=== PATIENT | male | born 1955 | race Caucasian/White ===

== ENCOUNTER 2018-10-24 09:14 | Outpatient (CLI) | payer OTHER, SELFPAY ==
--- NOTE | 2018-10-24 09:15 | DI.RAD_ITS ---
SYMPTOM/DIAGNOSIS: NEW ONSET DYSPNEA ON EXERTION, R06.09 FRONTAL AND LATERAL CHEST: Comparison is made with 09/23/16. Heart size and pulmonary vasculature are within normal limits. There is some nodularity seen at the lateral left aspect of the cardiac silhouette not present on the prior examination. Pericardial or pulmonary mass cannot be excluded. There is an opacity in the right lung base centrally. This may represent a summation of shadows but an infiltrate or mass cannot be excluded. No effusions or pneumothoraces are identified. No acute osseous abnormality is identified. IMPRESSION: Findings in the lung bases as described above. Further evaluation with a CT scan of the chest is recommended.
[2018-10-24 09:47] LABS: Abs Immature Grans 0.01 k/cumm (0.0-0.09); Absolute Basophil Count 0.03 k/cumm (0.0-0.2); Absolute Eosinophil Count 0.11 k/cumm (0.0-0.7); Absolute Lymphocyte Count 0.91 k/cumm (1.2-3.4); Absolute Monocyte Count 0.42 k/cumm (0.11-0.7); Absolute Neutrophil Count 2.07 k/cumm (1.2-6.7); Basophils % 0.8; Eosinophils % 3.1; HCT 42.8 % (40.0-50.0); HGB 14.5 g/dL (13.5-17.5); Immature Grans % 0.3; Lymphocytes % 25.6; Mean Corp. HGB Concentration 33.9 g/dL (32.0-36.0); Mean Corpuscular Hemoglobin 31.5 pg (27.0-33.0); Mean Corpuscular Volume 92.8 fL (80-95); Mean Platelet Volume 10.8 fL (8.0-11.0); Monocytes % 11.8; Neutrophils % 58.4; Platelet Count 204 x1000/uL (130-400); RBC 4.61 m/cumm (4.50-6.00); RBC Distribution Width 12.6 % (11.8-14.1); White Blood Cell Count 3.55 k/cumm (4.4-10.8)
[2018-10-24 10:30] LABS: ESR 14 MM/HR (1-20)
[2018-10-24 10:58] LABS: ALT 40 U/L (12-78); AST 26 U/L (15-37); Albumin 3.6 g/dL (3.4-5.0); Alkaline Phosphatase 70 U/L (46-116); Anion Gap 5.4 mmol/L (3-11); BUN 11 mg/dL (7-18); Bilirubin, Total 0.4 mg/dL (0.2-1.0); CO2 30.6 mmol/L (21.0-32.0); CREATININE 0.83 mg/dL (0.70-1.30); Calcium 8.5 mg/dL (8.5-10.1); Chloride 105 mmol/L (98-107); Glucose 92 mg/dL (70-100); Potassium 4.2 mmol/L (3.5-5.1); Sodium 141 mmol/L (136-145); Total Protein 6.7 g/dL (6.4-8.2); Vitamin B12 784 pg/mL (193-986)
== END 2018-10-24 09:34 ==
PROVIDERS: PCP Family Medicine; Visit Provider Family Medicine
DX: R06.09 Other forms of dyspnea (principal); R53.83 Other fatigue; J98.4 Other disorders of lung
CPT/HCPCS: 36415; 80053; 85652; 71046; 82607; 84443; 85025

== ENCOUNTER 2018-10-30 01:07 | Outpatient (CLI) | payer OTHER, SELFPAY ==
--- NOTE | 2018-10-30 14:54 | DI.CT_ITS ---
SYMPTOM/DIAGNOSIS: DYSPNEA ON EXERTION, R91.8, ? MASS ON CXR, R91.[address]: CT scan of the chest was performed following the uneventful administration of intravenous contrast material. Comparison chest xray is 10/24/18. The thoracic aorta is of normal caliber. Heart size is within normal limits. No significant pericardial effusion is seen. No thoracic adenopathy, pleural effusion or pneumothorax is identified. There is scarring seen in the right middle lobe and the left lingula which appears to account for the findings on the chest xray. No pulmonary mass is seen. No consolidating infiltrate is present. The tracheobronchial tree is unremarkable. Upper abdominal images show a cyst in the superior pole of the left kidney and a cyst in the left lobe of the liver. Mild degenerative changes are seen in the spine. IMPRESSION: 1. No evidence of a pulmonary mass or thoracic adenopathy. 2. Scarring seen in the right middle lobe and the left lingula which appears to account for the findings on the chest xray.
[2018-10-30] MEDS: Omnipaque 350 MG/ML 100 ML BTL IJ (15:58)
[2018-10-30] MEDS: Normal Saline Flush 10 ML SYR IVP (15:59)
== END 2018-10-30 01:27 ==
PROVIDERS: PCP Family Medicine; Visit Provider Family Medicine
DX: R91.8 Other nonspecific abnormal finding of lung field (principal); R06.09 Other forms of dyspnea; J98.4 Other disorders of lung
CPT/HCPCS: 71260; J3490

== ENCOUNTER 2019-02-02 03:52 | Outpatient (CLI) | payer OTHER, SELFPAY ==
[2019-02-02 10:53] LABS: Calculated LDL 136 mg/dL; Cholesterol 186 mg/dL (50-200); HDL Cholesterol 40 mg/dL (40-60); Triglyceride 53 mg/dL (30-150)
== END 2019-02-02 04:12 ==
PROVIDERS: PCP Family Medicine; Visit Provider Family Medicine
DX: Z13.220 Encounter for screening for lipoid disorders (principal)
CPT/HCPCS: 36415; 80061; 83721

== ENCOUNTER 2019-04-05 13:14 | Day surgery (SDC) | payer OTHER, SELFPAY ==
[2019-04-05 13:42] VITALS: BP 142/96; PULSE 80; RESP 16; TEMP 36.5; O2SAT 98
[2019-04-05 14:08] VITALS: BP 142/96; PULSE 80; RESP 16; TEMP 36.5; O2SAT 98
[2019-04-05] MEDS: Lactated Ringers 1,000 ML 80 ML IV (14:40)
--- NOTE | 2019-04-05 16:07 | W.PM.DSUDISC ---
Discharge Plan Disposition Patient Disposition: HOME Condition: Good Discharge Details Reason For Visit: colonscopy Attending Provider: Belkis Jett Primary Care Provider: Trino Farfan Home Meds and New Rx's Prescriptions: Continued tamsulosin [Flomax] 0.4 mg capsule 0.4 mg PO DAILY Qty: 90 RF: 3 albuterol sulfate [ProAir HFA] 90 mcg/actuation HFA aerosol inhaler 2 puff Inhalation Q4H PRN Qty: 1 RF: 11 multivitamin [Daily Multi-Vitamin] 1 EACH tablet 1 ea PO DAILY RF: 0 omeprazole 20 MG capsule,delayed release(DR/EC) 20 mg PO HS RF: 0 triamcinolone acetonide 15 GM cream 15 gm Topical TID 14 Days Qty: 1 RF: 3 sildenafil [Viagra] 100 mg tablet 50 mg PO DAILY PRN (Reason: sexual activity) Qty: 30 RF: 0 Qvar RediHaler 40 mcg/actuation HFA aerosol breath activated 2 puff IH BID Qty: 10.6 RF: 6 Discontinued bisacodyl [Dulcolax (bisacodyl)] 5 mg tablet,delayed release (DR/EC) 5 mg PO ONCE Qty: 4 RF: 0 polyethylene glycol 3350 17 gram/dose powder 238 g PO ONCE Qty: 238 RF: 0 Discharge Instructions Additional Instructions: Findings: no polyps or divertic Follow up:repeat scope in 10 yrs time Please call if you develop: fevers >101.5 Nausea or Vomiting Abdominal pain that is not transient DAY SURGERY UNIT POST COLONOSCOPY INSTRUCTIONS 1. Because there will be medication in your system for the next 24 hours, you may feel a little sleepy. Your coordination will be affected. Therefore: a. Do not drive or operate dangerous equipment for 24 hours. b. Do not drink alcohol beverages for 24 hours (not even beer). c. Plan to go home and rest for the day. 2. Generally there are no restrictions on your activity after a day or so has gone by, but you may feel a bit fatigued for a few days. 3 After you arrive home you may have a light meal and return to a normal diet as you can tolerate it without feeling sick to your stomach. 4. After surgery, you may feel pain or discomfort. This should be only transient, but if it persists please contact your doctor. 5. If there are any questions regarding the findings of your procedure, please feel free to contact your doctor. 6. If you are unable to contact your doctor with a problem, contact the hospital at [phone]. 7. Continue all your regular medications unless directed otherwise. I understand the above instructions and have no questions. Signature of Patient or Responsible Adult Escort Date/Time Name of Responsible Adult Escort Signature of Nurse Date/Time Activity:: No heavy lifting or strenuous activity x24 hours Diet:: Small light meals x24 hours Discharge Orders Discharge Orders: Discharge Order (Routine); Ordered 04/05/19 Ordered By: Belkis Jett DS: Diagnosis Discharge Diagnosis (1) External hemorrhoids without complication: Status: Acute
--- NOTE | 2019-04-05 16:12 | W.COLOREPORT ---
Date of service: 04/05/19 Time of Service: 16:12 Colonoscopy Report Date of procedure: 04/05/19 Pre-op diagnosis general: Screening Post-op diagnosis procedure note: other (minor ext hem) Procedure: Colonoscopy Surgeon: Belkis Jett Anesthesia proc note operative: GETA Estimated blood loss (mL): 0 Pathology: none sent Complications: None Disposition: same day Prep: Miralax/Dulcolax Retraction Time: 10 mins Procedure Description: After informed consent was obtained the patient was taken to the procedure room and placed in a left decubitous position. Monitors were applied and a time out was done. The patients name, date of , procedure, allergies to medications and metal in their body was reviewed. The patient was then sedated. Once sedated and comfortable a rectal exam was done. External exam was normal. Internal exam revealed a normal sphincter tone and no palpable masses- small ext hem.. The prostate nl. The scope was then introduced and retrofelexed. The scope was then advanced to the cecum without difficulty. The TI and appendiceal orifice were identified. The prep was good. The scope was then slowly retracted over 10 minutes back into the rectum. Polyps were removed at no. There were no polyps, AVMs, diverticuli apparent. The mucosa appeared pink healthy and normal. The scope was removed and the patient was woken up and taken back to Same day surgery in stable condition. The patient tolerated the procedure well and there were no immediate complications. Follow up: The patient should follow up in 10 years unless they develop changes in bowel habits or other new gastrointestinal complaints.
[2019-04-05 16:45] VITALS: BP 131/72; PULSE 63; RESP 16; TEMP 37; O2SAT 99
== END 2019-04-05 17:06 | disposition home or self-care (01) ==
PROVIDERS: PCP Family Medicine; Visit Provider Surgery
PROC: 0DJD8ZZ Inspection of Lower Intestinal Tract, Via Natural or Artificial Opening Endoscopic (ICD-10-PCS; CPT 45378; principal; 2019-04-05 14:45)
DX: Z12.11 Encounter for screening for malignant neoplasm of colon (principal); K64.4 Residual hemorrhoidal skin tags; K21.9 Gastro-esophageal reflux disease without esophagitis
CPT/HCPCS: 45378

== ENCOUNTER 2020-02-11 02:30 | Outpatient (CLI) | payer OTHER, SELFPAY ==
[2020-02-11 10:36] LABS: Anion Gap 10.2 mmol/L (3-11); BUN 15 mg/dL (7-18); CO2 26.8 mmol/L (21.0-32.0); Calcium 9.1 mg/dL (8.5-10.1); Calculated LDL 154 mg/dL (<100); Chloride 104 mmol/L (98-107); Cholesterol 210 mg/dL (<200); Glucose 82 mg/dL (74-106); HDL Cholesterol 45 mg/dL (40-60); Potassium 4.1 mmol/L (3.5-5.1); Sodium 141 mmol/L (136-145); Triglyceride 56 mg/dL (<150)
== END 2020-02-11 02:50 ==
PROVIDERS: PCP Family Medicine; Visit Provider Family Medicine
DX: Z13.1 Encounter for screening for diabetes mellitus (principal); Z13.220 Encounter for screening for lipoid disorders
CPT/HCPCS: 36415; 80048; 80061

== ENCOUNTER 2020-08-06 20:50 | Outpatient (REF) | payer OTHER, SELFPAY ==
[2020-08-07 14:38] LABS: COVID-19 RT-PCR UVMMC Result Negative (Negative)
== END 2020-08-06 20:51 | disposition home or self-care (01) ==
LOC: LBN 20:50
PROVIDERS: PCP Family Medicine; Visit Provider Family Medicine
DX: R06.02 Shortness of breath (principal)
CPT/HCPCS: U0003

== ENCOUNTER 2020-09-05 17:29 | Outpatient (CLI) | payer OTHER, SELFPAY ==
--- NOTE | 2020-09-05 17:15 | RT.EKG_ITS ---
APPROVED REPORT Exam: Resting ECG Patient Location: O HR:60 bpm ECG Measurements Heart Rate 60 AXIS IA 151 P 56 QRSd 110 QRS 23 QT 437 T 30 QTc 436 Conclusion Sinus rhythm...normal P axis, V-rate 60- 99
--- NOTE | 2020-09-05 17:30 | RT.EKG_ITS ---
APPROVED REPORT Exam: Resting ECG Patient Location: O HR:60 bpm ECG Measurements Heart Rate 60 AXIS [place] 156 P 66 QRSd 105 QRS 26 QT 425 T 31 QTc 425 Conclusion Sinus rhythm...normal P axis, V-rate 60- 99
--- NOTE | 2020-09-05 19:30 | DI.RAD_ITS ---
EXAM: XR CHEST 2V PA LATERAL CLINICAL HISTORY: SOB w/ exertion TECHNIQUE: COMPARISON: CR XR CHEST 2V PA LATERAL from 10/24/2018 FINDINGS: PA and lateral chest is compared with prior radiographs of October 24 [address] of October 302018. Note is again made of areas of bibasilar scarring. Lungs otherwise appear clear. Cardiac size within normal limits. No pleural effusion seen. IMPRESSION: No evidence of acute process. RADIATION DOSE DELIVERED: Total DLP
--- NOTE | 2020-09-05 19:36 | DI.VRAD_ITS ---
PROCEDURE INFORMATION: Exam: XR Chest Exam date and time: 09/05/2020 6:48 PM Age: 65 years old Clinical indication: Other: SOB w/exertion TECHNIQUE: Imaging protocol: XR of the chest Views: 2 views. COMPARISON: CT CHEST W 10/30/2018 3:34 PM FINDINGS: Lungs: Unremarkable. No consolidation. Pleural spaces: Unremarkable. No pleural effusion. No pneumothorax. Heart/Mediastinum: Unremarkable. No cardiomegaly. Bones/joints: Unremarkable. IMPRESSION: No acute findings. Dictated and Authenticated by: Ugo Cota MD. Ordering:HILDA Barrientos MD
== END 2020-09-05 17:30 | disposition home or self-care (01) ==
PROVIDERS: PCP Family Medicine; Visit Provider Physician Assistant
DX: R42 Dizziness and giddiness (principal); R06.02 Shortness of breath
CPT/HCPCS: 71046

== ENCOUNTER 2020-09-05 22:18 | Outpatient (REF) | payer OTHER, SELFPAY ==
[2020-09-05 20:35] LABS: Abs Immature Grans 0.03 10^3/uL (0.0-0.06); Absolute Basophil Count 0.02 10^3/uL (0.0-0.2); Absolute Eosinophil Count 0.35 10^3/uL (0.0-0.7); Absolute Lymphocyte Count 1.61 10^3/uL (1.2-3.4); Absolute Monocyte Count 0.86 10^3/uL (0.1-0.8); Absolute Neutrophil Count 5.23 10^3/uL (1.2-6.7); Basophils % 0.2; Eosinophils % 4.3; HCT 43.5 % (40.0-50.0); HGB 14.6 g/dL (13.5-17.5); Immature Grans % 0.4; Lymphocytes % 19.9; MCH 31.3 pg (27.0-33.0); MCHC 33.6 % (32.0-36.0); MCV 93.3 fL (80-95); MPV 11.6 fL (8.0-11.0); Monocytes % 10.6; Neutrophils % 64.6; Nucleated RBC 0 %; Platelet Count 239 10^3/uL (130-400); RBC 4.66 10^6/uL (4.36-5.78); RDW 11.9 % (11.8-14.1); RDW-SD 40.7 fL
[2020-09-05 20:44] LABS: ALT 48 U/L (16-63); AST 23 U/L (15-37); Albumin 3.7 g/dL (3.4-5.0); Alkaline Phosphatase 89 U/L (46-116); Anion Gap 7.7 mmol/L (3-11); BUN 14 mg/dL (7-18); Bilirubin, Total 0.5 mg/dL (0.2-1.0); CO2 28.3 mmol/L (21.0-32.0); CREATININE 0.9 mg/dL (0.70-1.30); Calcium 8.6 mg/dL (8.5-10.1); Chloride 104 mmol/L (98-107); Glucose 89 mg/dL (74-106); Potassium 5.2 mmol/L (3.5-5.1); Sodium 140 mmol/L (136-145); Total Protein 6.9 g/dL (6.4-8.2)
[2020-09-05 21:38] LABS: D-Dimer 335 ng/mlFEU (<500)
== END 2020-09-05 22:19 | disposition home or self-care (01) ==
LOC: NCHCN 22:18
PROVIDERS: PCP Family Medicine; Visit Provider Physician Assistant
DX: R06.02 Shortness of breath (principal)
CPT/HCPCS: 80053; 85025; 85379

== ENCOUNTER 2020-09-10 02:16 | Outpatient (CLI) | payer OTHER, SELFPAY ==
[2020-09-10 09:15] LABS: Potassium 4.5 mmol/L (3.5-5.1)
== END 2020-09-10 02:17 | disposition home or self-care (01) ==
LOC: LBO 02:16
PROVIDERS: PCP Family Medicine; Visit Provider Physician Assistant
DX: E87.5 Hyperkalemia (principal)
CPT/HCPCS: 84132

== ENCOUNTER 2020-09-16 01:26 | Outpatient (CLI) | payer OTHER, SELFPAY ==
--- NOTE | 2020-09-16 09:00 | ETT_ITS ---
APPROVED REPORT Exam: Exercise Treadmill Patient Location: Out-Patient Room/Bed: Stress Nurse: Roslyn Warren RN Ordering Provider:KIMBERLEE MAHONEY, Contact Number: [phone] BMI: 28.36 Baseline Rhythm: Sinus Rhythm Indications: Intermittent lightheadedness, SOB on exertion Medical History Medical History: Hyperlipidemia, asthma, adjustment disorder of depressed mood, intermittent hyperten damion Cardiac Medications: atorvastatin, aspirin, qvar, albuterol sulfate Allergies: cyclobenzaprine Cardiac Risk Factors: Hyperlipidemia, asthma, intermittent hypertension, family hx Previous Cardiac Procedures: None Pretest Chest Pain Characteristics: None Exercise History: Sedentary Physical Disabilities: None Lung Sounds: Clear to auscultation Heart Sounds: Regular Stress Test Details Test: Exercise stress testing was performed using a Phil protocol. Rest Stress HR Resting HR Supine: 61 bpm Max Heart Rate (APMHR): 156 bpm Resting HR Standin bpm Target HR (85% APMHR): 132 bpm Max HR Achieved: 152 bpm % of APMHR: 97 Recovery HR: 71 bpm HR response to stress: Normal HR response to stress BP Resting BP Supine: 144/86 mmHg Resting BP Standin/84 mmHg Max BP: 170/98 mmHg Recovery BP: 132/82 mmHg BP response to stress: Normal blood pressure response to stress. ECG Resting ECG: Sinus Rhythm Ectopy: None Stress ECG: Sinus Tachycardia ST Change: No significant ST segment changes noted Arrhythmia: Couplet, occasional PVC Recovery ECG: Sinus Rhythm Recovery ST Change: No significant ST segment changes noted Recovery Arrhythmia: PAC, frequent PVCs Clinical Reason for Termination: Dyspnea Stress Symptoms: Dyspnea Exercise duration: 9 min26 sec Highest Stage Reached: Stage 4: 4.2 mph at 16% grade. Exercise capacity: 10.86 METs Philip Treadmill Score: 9 Rate Pressure Product: 12068 Stress ECG Conclusion 1. The patient exercised for 9 minutes (11 METS). Exercise was stopped due to dyspnea. 2. The patient augmented blood pressure and heart rate appropriately. 3. There were no symptoms suggestive of ischemia. 4. There were no ECG changes suggestive of ischemia. Philip Treadmill Score is 9 which is Low risk. Stress Test Summary STAGE Time (mins) Speed (mph) Grade (%) HR BP SYMPTOMS METS Supine 61 144/86 Standing 71 150/84 1 3 1.7 10 112 144/88 4.6 2 6 2.5 12 128 160/98 7 3 9 3.4 14 146 170/98 10.2 1 min recovery 111 170/96 3 min recovery 79 170/82 6 min recovery 71 132/82
== END 2020-09-16 01:46 ==
LOC: DI 01:27
PROVIDERS: PCP Family Medicine; Visit Provider Physician Assistant
DX: R06.02 Shortness of breath (principal); R42 Dizziness and giddiness; E78.5 Hyperlipidemia, unspecified; J45.909 Unspecified asthma, uncomplicated; I10 Essential (primary) hypertension; Z82.49 Family history of ischemic heart disease and other diseases of the circulatory system
CPT/HCPCS: 93017

== ENCOUNTER 2021-02-12 03:04 | Outpatient (CLI) | payer OTHER, SELFPAY ==
[2021-02-12 13:10] LABS: ALT 41 U/L (16-63); AST 25 U/L (15-37); Albumin 3.9 g/dL (3.4-5.0); Alkaline Phosphatase 70 U/L (46-116); Anion Gap 11.5 mmol/L (3-11); BUN 16 mg/dL (7-18); Bilirubin, Total 0.8 mg/dL (0.2-1.0); CO2 24.5 mmol/L (21.0-32.0); CREATININE 0.9 mg/dL (0.70-1.30); Calcium 8.7 mg/dL (8.5-10.1); Calculated LDL 70 mg/dL (<100); Chloride 106 mmol/L (98-107); Cholesterol 126 mg/dL (<200); Glucose 84 mg/dL (74-106); HDL Cholesterol 47 mg/dL (40-60); Sodium 142 mmol/L (136-145); Total Protein 6.6 g/dL (6.4-8.2); Triglyceride 49 mg/dL (<150)
== END 2021-02-12 03:05 | disposition home or self-care (01) ==
LOC: LBO 03:04
PROVIDERS: PCP Family Medicine; Visit Provider Family Medicine
DX: E78.5 Hyperlipidemia, unspecified (principal)
CPT/HCPCS: 36415; 80053; 80061

== ENCOUNTER 2021-04-06 16:58 | Emergency (ER) | payer OTHER, SELFPAY ==
--- NOTE | 2021-04-06 17:00 | DI.RAD_ITS ---
Exam(s) XR HAND RT COMPLETE EXAM: XR HAND RT COMPLETE CLINICAL HISTORY: crush injury Tuesday. TECHNIQUE: 2D digital imaging was performed. COMPARISON: No exams were available for comparison FINDINGS: There is a small ossified density seen off the distal dorsal aspect of the middle phalanx of the 3rd- middle finger. This may be an avulsion fracture at this level and correlation with site of tendernes s is recommended. Small less than 1 millimeter ossified density is also noted off the DIP joint of t he 2nd-index finger. This does not have the appearance of a typical avulsion fracture. IMPRESSION: Possible avulsion fracture distal aspect of the middle phalanx 3rd finger. Correlation with site of tenderness is recommended. DATA REPOSITORY: RADIATION DOSE DELIVERED:
[2021-04-06 17:04] VITALS: BP 144/91; PULSE 84; RESP 18; TEMP 37.3; O2SAT 99
--- NOTE | 2021-04-06 17:13 | W.ED.GENAD ---
Discharge Plan Disposition Patient Disposition: HOME Condition: Good Discharge Details Clinical Impression: Crush injury of hand Primary Care Provider: Trino Farfan ED Provider: Rhonda Cochran Home Meds and New Rx's Prescriptions: Continued tamsulosin [Flomax] 0.4 mg capsule 0.4 mg PO DAILY Qty: 90 RF: 3 atorvastatin 40 mg tablet 40 mg PO QHS Qty: 90 RF: 3 albuterol sulfate [ProAir HFA] 90 mcg/actuation HFA aerosol inhaler 2 puff Inhalation Q4H PRN Qty: 1 RF: 11 sildenafil [Viagra] 100 mg tablet 50 mg PO DAILY PRN (Reason: sexual activity) Qty: 30 RF: 11 losartan 50 mg tablet 50 mg PO DAILY Qty: 90 RF: 3 multivitamin [Daily Multi-Vitamin] 1 EACH tablet 1 ea PO DAILY RF: 0 omeprazole 20 MG capsule,delayed release(DR/EC) 20 mg PO HS RF: 0 Qvar RediHaler 40 mcg/actuation HFA aerosol breath activated 2 inh IH BID Qty: 10.6 RF: 6 Discharge Instructions Instructions: Crush Injury (ED) Additional Instructions: X-ray is reassuring. As we discussed, there was a small questionable area at the end of your middle finger but this does not seem to correlate with your injury. Likely old. However, crush injury can be incredibly uncomfortable as well as result enlargement swelling. Please use the Elías wrap to help with swelling and discomfort. Please encourage rest, ice, elevation. Tylenol and/or ibuprofen as needed for comfort. Please follow-up with primary care for reevaluation in 2 weeks. If you develop any new or worsening symptoms please seek care urgently once again. Referrals: Trino Farfan DO [Primary Care Provider] - Discharge Data Discharge Date/Time-TO BE ENTERED AT DEPARTURE: 04/06/21 18:54 Medical Decision Making Patient is a pleasant 66-year-old gentleman presenting today with complaint of right hand injury. 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 Since then, he has been having pain and swelling of the dorsal aspect of his right hand, primarily clustered around the second and third MCP joints. He denies any injuries from the incident. Denies any numbness or tingling. No opening in the skin. Patient does have history of Dupuytren's. On exam, patient appears nontoxic. Has notable swelling on the dorsal aspect of his hand all proximal to the MCP joint. This is area of discomfort. No palpable deformity. Dupuytren's deformity noted at the fifth digit. Is ligamentously intact. No swelling or deformity in the fingers. 2+ distal pulses. Forage motion of the wrist. X-ray obtained here evaluate for any bony abnormality. FINDINGS: Bones/joints: Tiny osseous fragment dorsal to the distal interphalangeal joint of the 3rd digit, suspicious for avulsion fracture of the epiphysis of the middle phalanx. No other osseous injury identified. No significant degenerative changes. Soft tissues: Normal. IMPRESSION: Tiny osseous fragment dorsal to the distal interphalangeal joint of the 3rd digit, suspicious for avulsion fracture of the epiphysis of the middle phalanx. Reevaluated the patient. This does not fit clinically. I did discuss this with the patient and feel this is likely old and not associated with his acute injury. Advised that he has crush injury with associated swelling. Encourage rest, ice and elevation. Tylenol and/or ibuprofen as needed for discomfort. I encourage the use of an Elías wrap to help swelling. Advise follow-up with primary care in 2 weeks for reevaluation. All his questions and concerns were addressed and he is agreement this plan. He will return with any new or worsening symptoms. HPI General Mode of arrival: ambulatory. Date/Time Provider Initiated Documentation: 04/06/21 17:09. Limitations to Documentation: no limitations. Information obtained by: patient and RN notes reviewed. History of Present Illness 66 year old M presents to the emergency department with the chief complaint of right hand pain, described as moderate, with intensity rated at 7. Quality is described as aching, and is localized to the right and upper extremity. Patient reports no radiation. Patient started experiencing this day(s) and it has been constant. Immobilization improves symptom(s), Movement worsens symptoms . Patient notes no other symptoms.. Patient did receive the following treatments prior to arrival, none Related Data Home Medications Medication Instructions Recorded Confirmed multivitamin [Daily Multi-Vitamin] 1 ea PO DAILY 09/28/12 04/06/21 omeprazole 20 mg PO HS cap 05/09/17 10/11/21 losartan 50 mg tablet 50 mg PO DAILY #90 tab 10/24/20 04/06/21 beclomethasone dipropionate 40 2 inh IH BID #10.6 gm 12/23/20 04/06/21 mcg/actuation HFA breath activated aerosol albuterol sulfate 90 mcg/actuation 2 puff INHALATION Q4H PRN #1 puff 02/19/21 04/06/21 aerosol inhaler atorvastatin 40 mg tablet 40 mg PO QHS #90 tab 02/19/21 04/06/21 sildenafil 100 mg tablet 50 mg PO DAILY PRN #30 tab 02/19/21 04/06/21 tamsulosin 0.4 mg capsule 0.4 mg PO DAILY #90 cap 03/24/21 04/06/21 Previous Rx's Medication Instructions Recorded losartan 50 mg tablet 50 mg PO DAILY #90 tab 10/24/20 beclomethasone dipropionate 40 2 inh IH BID #10.6 gm 12/23/20 mcg/actuation HFA breath activated aerosol albuterol sulfate 90 mcg/actuation 2 puff INHALATION Q4H PRN #1 puff 02/19/21 aerosol inhaler atorvastatin 40 mg tablet 40 mg PO QHS #90 tab 02/19/21 sildenafil 100 mg tablet 50 mg PO DAILY PRN #30 tab 02/19/21 tamsulosin 0.4 mg capsule 0.4 mg PO DAILY #90 cap 03/24/21 Allergies Allergy/AdvReac Type Severity Reaction Status Date / Time lisinopril AdvReac Intermediate dry cough Verified 04/06/21 18:27 cyclobenzaprine AdvReac urinary Verified 04/06/21 18:27 [From Flexeril] retention General Stated Complaint: Orthopedic LAURY: 4 Review of Systems Constitutional Constitutional: Reports as per HPI, Denies chills, Denies fever(s), Denies headache(s) and Denies weakness ENT Ears, Nose, Mouth, and Throat: Denies headache(s) Respiratory Respiratory: Reports as per HPI and Denies cough Musculoskeletal Musculoskeletal: Reports as per HPI and Denies tingling Integumentary/Breasts Skin/Breast: Reports as per HPI, Denies rash and Denies wounds Neurologic Neurologic: Reports as per HPI, Denies headache(s), Denies tingling, Denies paresthesias and Denies weakness PFSH Medical History ELÍAS-inhibitor cough Adjustment disorder with depressed mood (10/12/16) Atypical mole Dupuytren's contracture of left hand Dupuytren's contracture of right hand Essential hypertension Needs yearly labs for work External hemorrhoids without complication Ganglion cyst of both hands History of asthma Surgical History H/O wisdom tooth extraction History of arthroscopic knee surgery (~01/23/14) L partial medial menisectomy, limited chondroplasty Hx of colonoscopy Family History Mother , bladder cancer at age 59. No problems noted. Father Heart disease Neoplasm Sister No problems noted. Brother No problems noted. Brother No problems noted. Social History Smoking/Tobacco Use Status: Never Smoking risk assessment performed?: Yes Alcohol Intake: current Alcohol Intake frequency: a few times a week Alcohol type: beer Drug use: Never Substance use type: does not use Details: alcohol: t-5, 2 drinks Adopted: No Caregiver/Support person: No Foster care: No Household members: spouse Housing: house Number of Children: 3 number of grandchildren: 6 Communication Needs: Corrective Lenses Education Level: high school Do you need help understanding health information?: Often current occupation: works for [employer], [employer] Pets and animals: No Sexually active: Yes Do you think of yourself as: straight/heterosexual Current gender identity: male What is your relationship status?: How often do you talk on the phone with friends or family?: twice per week How often do you get together with friends or relatives?: twice per week How often do you attend adventist or bahai services?: 1-3 times per year Do you belong to any clubs or organized social groups?: yes Panel score (0-1 are the most socially isolated patients): 3 What type of physical activity do you participate in: walking Duration: 30-45 minutes/day Frequency: 3-4 times per week Hilda/Congregation: [employer] Special hilda needs: No Seatbelt use: always Helmet use: Yes Drive intox or ride w/intox crew car driver: No Working smoke detector in home: Yes Carbon monox detector in home: Yes Do you feel safe at home: Yes Do you feel safe in your relationship?: Yes Exam Const General: cooperative, healthy appearing, comfortable, no acute distress, well developed and well groomed Nutritional Appearance: average body habitus and well nourished Orientation: alert and awake Resp Effort & Inspection: normal respiratory effort, able to speak in complete sentences and no respiratory distress Cardio Rate: regular rate Rhythm: regular rhythm Skin General skin exam: no rashes or lesions noted Lesions: no lesions Rashes: no rashes Trauma: no lacerations or abrasions Neuro General: patient alert and patient awake Cognition: normal cognition Speech: speech normal Gait: normal gait Motor: muscle tone normal throughout Sensory Exam: no sensory deficits noted Extrem Hand/finger images: 1. Area of swelling. Full ROM. Ligamentously intact. 2+ distal pulses. No pain in the fingers. Full ROM of wrist. No opening ofthe skin. Palmar side unremarkable. Sensation intact. Psych Appearance: grossly normal and well kempt Mental Status: mental status grossly normal Speech and Movement: speech and movement normal Course Vital Signs Vital signs: Vital Signs Temperature 37.3 C 04/06/21 17:04 Pulse 84 04/06/21 17:04 Respiratory Rate 18 04/06/21 17:04 Blood Pressure 144/91 H 04/06/21 17:04 Pulse Oximetry 99 04/06/21 17:04 Temperature 37.3 C 04/06/21 17:04 Temperature Source Temporal Artery Scan 04/06/21 17:04 Pulse 84 04/06/21 17:04 Respiratory Rate 18 04/06/21 17:04 Blood Pressure 144/91 H 04/06/21 17:04 Pulse Oximetry 99 04/06/21 17:04 Oxygen Delivery Method Room Air 04/06/21 17:04 Oxygen Flow Rate 0 04/06/21 17:04 Pain Level 7 04/06/21 17:04
--- NOTE | 2021-04-06 17:45 | DI.VRAD_ITS ---
PROCEDURE INFORMATION: Exam: XR Right Hand Exam date and time: 04/06/2021 5:10 PM Age: 66 years old Clinical indication: Injury or trauma; Crushing; Hand; Right; Patient HX: Crush injury Tuesday TECHNIQUE: Imaging protocol: XR Right hand. Views: 3 or more views. COMPARISON: No relevant prior studies available. FINDINGS: Bones/joints: Tiny osseous fragment dorsal to the distal interphalangeal joint of the 3rd digit, suspicious for avulsion fracture of the epiphysis of the middle phalanx. No other osseous injury identified. No significant degenerative changes. Soft tissues: Normal. IMPRESSION: Tiny osseous fragment dorsal to the distal interphalangeal joint of the 3rd digit, suspicious for avulsion fracture of the epiphysis of the middle phalanx. Dictated and Authenticated by: Nicolas Naavrro MD. Ordering:LONG Ellis MD
== END 2021-04-06 18:54 | disposition home or self-care (01) ==
PROVIDERS: Emergency Provider Physician Assistant; PCP Family Medicine
DX: S67.21XA Crushing injury of right hand, initial encounter (principal); W23.1XXA Caught, crushed, jammed, or pinched between stationary objects, initial encounter; Y99.0 Civilian activity done for income or pay
CPT/HCPCS: 99283; 73130

== ENCOUNTER 2021-08-28 09:47 | Outpatient (CLI) | payer OTHER, SELFPAY ==
--- NOTE | 2021-08-28 08:45 | DI.RAD_ITS ---
Exam(s) XR HAND RT COMPLETE EXAM: XR HAND RT COMPLETE CLINICAL HISTORY: eval persistent MF/RF MCP pain s/p crush. TECHNIQUE: 2D digital imaging was performed of the right hand. Three images were obtained. AP, late ral and oblique views were obtained. COMPARISON: CR,XR XR HAND RT COMPLETE from 04/06/2021 FINDINGS: BONES: The tiny osseous densities seen at the dorsal aspect of the head of the middle phalanx of the right middle finger is unchanged. No new fracture or dislocation is appreciated. No bony destructiv e lesion is seen. JOINTS: No dislocation present. SOFT TISSUE: Normal. IMPRESSION: No new fracture or dislocation. DATA REPOSITORY: RADIATION DOSE DELIVERED:
== END 2021-08-28 09:48 | disposition home or self-care (01) ==
LOC: DIORS 09:48
PROVIDERS: PCP Family Medicine; Referring Provider Family Medicine; Visit Provider Student in an Organized Health Care Education/Training Program
DX: M79.641 Pain in right hand; S67.21XA Crushing injury of right hand, initial encounter; S62.632D Displaced fracture of distal phalanx of right middle finger, subsequent encounter for fracture with routine healing; W23.0XXD Caught, crushed, jammed, or pinched between moving objects, subsequent encounter
CPT/HCPCS: 73130

== ENCOUNTER → 2021-12-30 01:32 | Outpatient (CLI) | payer OTHER, SELFPAY ==
--- NOTE | 2021-12-30 07:30 | DI.MRI_ITS ---
Exam(s) MR UPPER EXTREMITY RT WO EXAM: MR UPPER EXTREMITY RT WO CLINICAL HISTORY: PAIN, R HAND crush injury,[id number]. TECHNIQUE: Multiplanar multisequence MRI was performed. CONTRAST MATERIAL: Noncontrast COMPARISON: Plain films dated 28 August 2021 FINDINGS: Bones: There is no fracture or contusion. The radiocarpal, intercarpal and carpometacarpal joint spac es are preserved. There are no erosive changes seen. There is no appreciable joint effusion. . Musculoskeletal Structures: The tendons are intact. There is no muscle atrophy. There are no muscula r strains seen. The visualized median nerve appears to be within normal limits and is normally located within the car pal tunnel. IMPRESSION: Unremarkable MRI of the Right hand. DATA REPOSITORY:
== END ==
PROVIDERS: PCP Family Medicine; Visit Provider Student in an Organized Health Care Education/Training Program
DX: S67.21XA Crushing injury of right hand, initial encounter (principal); X58.XXXA Exposure to other specified factors, initial encounter; Y99.8 Other external cause status
CPT/HCPCS: 73218

== ENCOUNTER 2023-05-31 11:05 | Outpatient (REF) | payer OTHER, SELFPAY ==
[2023-05-31 16:09] LABS: Influenza A PCR Negative (Negative); Influenza B PCR Negative (Negative); RSV PCR Negative (Negative)
[2023-05-31 16:12] LABS: COVID-19 PCR Positive (Negative); Source Nasopharynx
== END 2023-05-31 11:06 | disposition home or self-care (01) ==
LOC: LBN 11:05
PROVIDERS: PCP Family Medicine; Visit Provider Nurse Practitioner
DX: R09.89 Other specified symptoms and signs involving the circulatory and respiratory systems (principal)
CPT/HCPCS: 87637

== ENCOUNTER 2024-03-19 11:09 | Outpatient (CLI) | payer OTHER, SELFPAY ==
[2024-03-19 18:34] LABS: PSA, Screening 3.7 ng/mL (<=4.5)
== END 2024-03-19 11:10 | disposition home or self-care (01) ==
LOC: LBO 11:10
PROVIDERS: PCP Family Medicine; Visit Provider Nurse Practitioner Gerontology
DX: R39.9 Unspecified symptoms and signs involving the genitourinary system (principal); N40.1 Benign prostatic hyperplasia with lower urinary tract symptoms; N13.8 Other obstructive and reflux uropathy; N48.6 Induration penis plastica
CPT/HCPCS: 36415; 84153

== ENCOUNTER 2025-04-23 01:18 | Outpatient (CLI) | payer OTHER, SELFPAY ==
[2025-04-23 09:36] LABS: AST 24 U/L (15-37); Albumin 3.7 g/dL (3.4-5.0); Alkaline Phosphatase 76 U/L (46-116); Anion Gap 6.3 mmol/L (3-11); BUN 14 mg/dL (7-18); Bilirubin, Total 0.7 mg/dL (0.2-1.0); CO2 29.7 mmol/L (21.0-32.0); Calcium 8.6 mg/dL (8.5-10.1); Calculated LDL 71 mg/dL (<100); Chloride 102 mmol/L (98-107); Cholesterol 122 mg/dL (<200); Estimated GFR 92.45 (mL/min/1.73m2); Glucose 91 mg/dL (74-106); HDL Cholesterol 43 mg/dL (>or=40); Potassium 4.1 mmol/L (3.5-5.1); Sodium 138 mmol/L (136-145); Total Protein 7.0 g/dL (6.4-8.2); Triglyceride 43 mg/dL (<150)
[2025-04-23 09:59] LABS: ALT 41 U/L (16-63)
== END 2025-04-23 01:19 | disposition home or self-care (01) ==
PROVIDERS: PCP Family Medicine; Referring Provider Family Medicine; Visit Provider Family Medicine
DX: I10 Essential (primary) hypertension (principal)
CPT/HCPCS: 36415; 80053; 80061